=== PATIENT | female | born 1985 | race Hispanic/Latino ===

== ENCOUNTER 2024-01-18 22:15 | Emergency (ER) | payer MEDICAID, SELFPAY ==
[~2024-01-18 22:15] MED LIST: Iopamidol 370 76% 100 ML VIAL ONE
[2024-01-18] MEDS ORDERED: Morphine 4 MG/ML VIAL ONE (22:42)
[2024-01-18 23:01] LABS: #Basophils 0.03 10x3/uL (0.0-0.2); #Eosinphils 0.43 10x3/uL (0.0-0.5); #Monocytes 0.32 10x3/uL (0.0-1.1); #Neutrophils 2.62 10x3/uL (1.5-8.4); %Basophils 0.5 % (0.0-2.0); %Eosinophils 7.4 % (0.0-6.0); %Lymphocytes 41.7 % (18.0-47.0); %Monocytes 5.5 % (0.0-10.0); %Neutrophils 44.7 % (40.0-75.0); Hematocrit 39.3 % (34.9-44.5); Hemoglobin 12.9 g/dL (12.0-15.5); Mean Corpuscular HGB CONC 32.8 g/dL (32.0-36.0); Mean Corpuscular Hemoglobin 26.8 pg (27.0-33.0); Mean Corpuscular Volume 81.7 fL (81.6-98.3); Mean Platelet Volume 10.9 fL (7.4-10.4); Platelet Count 289 10x3/uL (150-450); Red Blood Cell (RBC) Count 4.81 10x6/uL (3.90-5.03); White Blood Cell (WBC) Count 5.9 10x3/uL (3.5-10.5)
[2024-01-18 23:10] LABS: ALT (SGPT) 64 U/L (8-55); AST (SGOT) 61 U/L (5-34); Albumin 3.8 g/dL (3.5-5.0); Alkaline Phosphatase 116 U/L (40-110); Anion Gap 19 mmol/L (10-20); BUN (Urea Nitrogen) 13 mg/dL (7.0-18.7); Bilirubin, Total 0.3 mg/dL (0.2-1.2); Calc. Creatinine Clearance 0 mL/min (70-130); Calcium 8.7 mg/dL (7.8-10.44); Carbon Dioxide 17 mmol/L (22-29); Chloride 106 mmol/L (98-107); Estimated GFR 107; Globulin 3.4 g/dL (2.4-3.5); Glucose 115 mg/dL (70-105); Potassium 3.7 mmol/L (3.5-5.1); Protein, Total 7.2 g/dL (6.0-8.3); Sodium 138 mmol/L (136-145)
[2024-01-18 23:16] LABS: Troponin I 0.023 ng/mL (< 0.028)
[2024-01-18] MEDS ORDERED: Aspirin 325 MG TAB ONE ×2 (23:29→23:32)
[2024-01-18] MEDS ORDERED: Nitroglycerin 0.4 MG TAB 1 EACH ONE (23:30)
[2024-01-19] MEDS ORDERED: Ondansetron PF 4 MG/2 ML Vial ONE (00:32)
[2024-01-19] MEDS ORDERED: Acetaminophen 325 MG TAB PO PRN (02:50)
[2024-01-19] MEDS ORDERED: Ondansetron PF 4 MG/2 ML Vial IVP PRN (02:50)
[2024-01-19] MEDS ORDERED: Guaifenesin DM 100-10/5 ML UDCUP PO PRN (02:50)
[2024-01-19] MEDS ORDERED: HYDROcodone/Acetaminophen 5/325 mg Tablet PO PRN (02:50)
[2024-01-19] MEDS ORDERED: hydrALAZINE 20 MG/ML VIAL SLOW IVP PRN (02:53)
[2024-01-19] MEDS ORDERED: Morphine 2 MG/ML VIAL SLOW IVP PRN (02:54)
[2024-01-19] MEDS ORDERED: hydrALAZINE 20 MG/ML VIAL ONE (03:00)
[2024-01-19] MEDS ORDERED: Lactated Ringer's 1,000 ML IV SCH (03:00)
[2024-01-19 03:09] LABS: ALT (SGPT) 83 U/L (8-55); AST (SGOT) 293 U/L (5-34); Albumin 3.5 g/dL (3.5-5.0); Alkaline Phosphatase 101 U/L (40-110); Anion Gap 16 mmol/L (10-20); BUN (Urea Nitrogen) 12 mg/dL (7.0-18.7); Bilirubin, Total 0.4 mg/dL (0.2-1.2); Calc. Creatinine Clearance 0 mL/min (70-130); Calcium 8.5 mg/dL (7.8-10.44); Carbon Dioxide 20 mmol/L (22-29); Chloride 105 mmol/L (98-107); Estimated GFR 109; Globulin 3.4 g/dL (2.4-3.5); Glucose 133 mg/dL (70-105); Lipase 16 U/L (8-78); Potassium 3.9 mmol/L (3.5-5.1); Protein, Total 6.9 g/dL (6.0-8.3); Sodium 137 mmol/L (136-145)
[2024-01-19] MEDS ORDERED: SODIUM CHLORIDE 0.9% IVPB SCH (03:15)
[2024-01-19] MEDS ORDERED: MAGNESIUM SULFATE IVPB SCH (03:15)
[2024-01-19] MEDS ORDERED: Lidocaine 2% Viscous Solution 10 ML, Aluminum & Magnesium Hydroxide 30 ML SSW SCH (03:30)
[2024-01-19] MEDS ORDERED: Famotidine/PF 20 mg/2ml Vial SLOW IVP SCH ×2 (03:30→09:00)
[2024-01-19 03:38] LABS: Cardiac Risk 5.4 (Less than 4.5); Troponin I 55.156 ng/mL (< 0.028)
[2024-01-19] MEDS ORDERED: Nitroglycerin 2% Ointment 1 INCH/1 GM Packet ONE (03:48)
[2024-01-19] MEDS ORDERED: Morphine 4 MG/ML VIAL ONE (03:49)
[2024-01-19] MEDS ORDERED: Heparin 25,000 units/D5W 500 ML ONE (03:52)
[2024-01-19] MEDS ORDERED: Heparin 10,000 UNITS/ 10 ML VIAL ONE (03:59)
[2024-01-19] MEDS ORDERED: Piperacillin/Tazobactam 3.375 GM in Sodium Chloride 0.9% 100 ML IVPB SCH ×2 (04:00→08:00)
[2024-01-19 04:56] LABS: INR-International Normal Ratio 1.1; Prothrombin Time 11.7 sec (9.5-12.1)
[2024-01-19 05:03] LABS: HBsAg Index 0.15 S/CO (0-0.99); Hep B Surf Ag Non-Reactive S/CO (NonReactive)
[2024-01-19 05:04] LABS: PTT Greater than 139.0 sec (22.0-33.0)
[2024-01-19] MEDS ORDERED: Labetalol HCl 100 MG TAB PO SCH (09:00)
[2024-01-19 13:13] LABS: HBCM Index 0.08 S/CO (0-0.79); Hep A IgM AB NONREACTIVE (NonReactive); Hep C IgG Ab NONREACTIVE S/CO (NonReactive); Hep C Index 0.13 S/CO (0-0.79); Hepatitis B Core IgM Abs NONREACTIVE S/CO (NonReactive)
[2024-01-19] MEDS ORDERED: Enoxaparin 40 MG (0.4 mL) SYRINGE SC SCH (21:00)
== END 2024-01-19 05:27 | disposition short-term general hospital (02) ==
LOC: CSHERS 22:15
DX: O90.89 Other complications of the puerperium, not elsewhere classified (principal); R07.9 Chest pain, unspecified; O16.5 Unspecified maternal hypertension, complicating the puerperium
CPT/HCPCS: 36415; 71045; 71275; 76705; 80053; 80061; 80074; 82550; 83690; 84484; 85025; 85379; 85610; 85730; 93005; 96361; 96374; 96375; 96376; J0360; J1644; J2270; J2405; J3475; J7050; J7120; Q9967